=== PATIENT | male | born 1975 | race Caucasian/White ===

== ENCOUNTER → 2021-04-01 09:27 | Outpatient (BNVA) | payer MEDICARE, SELFPAY | PROVIDERS: PCP Internal Medicine; Visit Provider Internal Medicine | DX: M25.511 Pain in right shoulder (principal); G89.29 Other chronic pain | CPT/HCPCS: 99202 ==

== ENCOUNTER → 2021-06-20 11:42 | Outpatient (BNVA) | payer MEDICARE, MEDICAID, SELFPAY | PROVIDERS: PCP Internal Medicine; Visit Provider Internal Medicine | DX: Z13.89 Encounter for screening for other disorder (principal) | CPT/HCPCS: Q3014 ==

== ENCOUNTER 2021-06-27 10:17 | Outpatient (REF) | payer MEDICARE, OTHER, SELFPAY ==
--- NOTE | ~2021-06-27 | XR_ITS ---
EXAMINATION: XR SHOULDER , RIGHT CLINICAL INFORMATION: Pain COMPARISON: None available at the time of this dictation. TECHNIQUE: AP external rotation, Grashey, scapular Y, and axillary views of the shoulder. FINDINGS: BONES: There is no fracture or dislocation, no osteolytic or osteoblastic lesion. JOINTS: Glenohumeral joint is properly positioned. There is mild degenerative osteoarthritis of the acromioclavicular joint. SOFT TISSUE AND INCLUDED LUNG: Normal. XR/XR shoulder RT min 2V IMPRESSION: Except for mild DJD of the AC joint, exam is normal.
== END 2021-06-27 10:18 | disposition home or self-care (01) ==
LOC: HO.HOSX 10:17
PROVIDERS: Visit Provider Orthopaedic Surgery
DX: M75.100 Unspecified rotator cuff tear or rupture of unspecified shoulder, not specified as traumatic (principal)
CPT/HCPCS: 73030; 99202

== ENCOUNTER 2021-07-11 07:15 | Outpatient (REF) | payer MEDICARE, MEDICAID, SELFPAY ==
--- NOTE | ~2021-07-11 | MR_ITS ---
EXAMINATION: MR SHOULDER WITHOUT CONTRAST, RIGHT CLINICAL INFORMATION: Right shoulder pain and decreased range of motion. Evaluate for rotator cuff tendon tear. COMPARISON: Right shoulder radiographs dated 06/27/2021. TECHNIQUE: MRI of the shoulder without contrast was performed on a high-field scanner. FINDINGS: ROTATOR CUFF: Mild supraspinatus tendinosis with a focal full-thickness tear measuring 1.2 x 1.0 cm (AP by ML) and located approximately 1.7 cm proximal to the tendon insertion. Degenerative cystic change within the anterior aspect of the greater tuberosity adjacent to the tendon insertion. No muscle atrophy or fatty infiltration. BICEPS: The proximal long head biceps tendon is not well seen, which could indicate a complete tear and tendon retraction. CORACOACROMIAL ARCH: The undersurface of the acromion is minimally curved with prominent subacromial spurring. [id number] acromioclavicular osteoarthritis with marrow and capsular edema. LABRUM/CAPSULE: Fluid extending through the undersurface of the superior labrum, consistent with a nondisplaced undersurface tear. GLENOHUMERAL JOINT/MARROW: Inferior glenoid articular cartilage thinning with mild subchondral cystic change and tiny marginal osteophytes. Trace joint effusion. MR/MR shoulder RT wo con IMPRESSION: 1. Focal full-thickness tear of the posterior supraspinatus tendon measuring 1.2 x 1.0 cm and located approximately 1.7 cm from the tendon insertion. Prominent degenerative cystic change within the underlying anterior greater tuberosity. 2. Absence of the proximal long head biceps tendon, which could indicate a complete tear and tendon retraction. 3. Frmlgnjk-[id number] acromioclavicular osteoarthritis with prominent marrow and capsular edema. Subacromial spurring. 4. Nondisplaced undersurface tear of the superior labrum. 5. Mild glenohumeral osteoarthritis and trace joint effusion.
== END 2021-07-11 07:16 | disposition home or self-care (01) ==
LOC: HO.MRI 07:15
PROVIDERS: PCP Internal Medicine; Visit Provider Orthopaedic Surgery
DX: M75.100 Unspecified rotator cuff tear or rupture of unspecified shoulder, not specified as traumatic (principal)
CPT/HCPCS: 73221

== ENCOUNTER → 2021-07-22 12:47 | Outpatient (BNVA) | payer MEDICARE, MEDICAID, SELFPAY | PROVIDERS: PCP Internal Medicine; Visit Provider Orthopaedic Surgery | DX: M75.101 Unspecified rotator cuff tear or rupture of right shoulder, not specified as traumatic (principal) | CPT/HCPCS: 99212 ==

== ENCOUNTER 2021-07-31 05:50 | Outpatient (REF) | payer MEDICARE, MEDICAID, SELFPAY | END 2021-07-31 05:51 | disposition home or self-care (01) | LOC: HO.RADIR 05:50 | PROVIDERS: Visit Provider Internal Medicine | DX: Z13.89 Encounter for screening for other disorder (principal) ==

== ENCOUNTER → 2021-09-09 11:40 | Outpatient (BNVA) | payer MEDICARE, MEDICAID, SELFPAY | PROVIDERS: PCP Internal Medicine; Visit Provider Physician Assistant | DX: Z01.818 Encounter for other preprocedural examination (principal); S46.211A Strain of muscle, fascia and tendon of other parts of biceps, right arm, initial encounter; M75.101 Unspecified rotator cuff tear or rupture of right shoulder, not specified as traumatic | CPT/HCPCS: 99212 ==

== ENCOUNTER 2021-09-11 05:49 | Day surgery (SDC) | payer MEDICARE, MEDICAID, SELFPAY ==
[2021-09-06 08:58] VITALS: BMI 30.4
--- NOTE | 2021-09-10 08:18 | HO.ANESPROP2 ---
Documented by User: Jessie San NP 09/10/21 08:18 HPI - Anesthesia Eval Consult details Narrative: 45yo M for Left Arthroscopic Rotator Cuff Repair PMFSH Active Problems Active Problems: All Active Problems (Updated 09/09/21 @ 12:11 by Suzanne Dong) Pre-op evaluation (Acute) Biceps tendon tear (Acute) Rotator cuff tear (Acute) Past Medical History Medical History (Updated 09/09/21 @ 12:11 by Suzanne Dong) Biceps tendon tear Elevated cholesterol HTN (hypertension) Rotator cuff tear Surgical History Surgical History (Updated 09/11/21 @ 06:05 by Lise Mendoza, MARK) History of back surgery History of surgery on arm Social History Social History Substance Use Type: Marijuana Current occupational status: employed Current occupation: [employer] Allergies Allergy/AdvReac Type Severity Reaction Status Date / Time No Known Allergies Allergy Verified 09/11/21 06:05 Home Medications Medication Instructions Recorded Confirmed Last Taken Type atorvastatin 20 mg tablet 20 mg PO BEDTIME 04/01/21 09/09/21 Unknown History cyclobenzaprine 10 mg tablet 10 mg PO TID 04/01/21 09/09/21 Unknown History fluticasone propionate 50 2 spray INTRANASAL DAILY 04/01/21 09/09/21 Unknown History mcg/actuation nasal spray,suspension (Flonase Allergy Relief) lisinopril 20 1 tab PO DAILY 04/01/21 09/09/21 Unknown History mg-hydrochlorothiazide 12.5 mg tablet naproxen 500 mg tablet 500 mg PO BID 04/01/21 09/09/21 Unknown History pregabalin 225 mg capsule (Lyrica) 225 mg PO BID 04/01/21 09/09/21 09/11/21 04:30 History Exam Exam Date and Time: September 10, [id number] Height,Weight and Vital Signs: Height 6 ft 2 in Weight 107.501 kg Assessment and Plan Assessment Anesthesia Assessment: Chart Reviewed Documented by User: Nino Goel MD 09/11/21 15:01 HPI - Anesthesia Eval Consult details Narrative: 45yo M for right Arthroscopic Rotator Cuff Repair chronic back pain PMFSH Past Medical History Medical History (Updated 09/09/21 @ 12:11 by Suzanne Dong) Biceps tendon tear Elevated cholesterol HTN (hypertension) Rotator cuff tear Family History Family history of problems with anesthesia: No Surgical History Surgical History (Updated 09/11/21 @ 06:05 by Lise Mendoza RN) History of back surgery History of surgery on arm History of Problems with Anesthesia: No Social History Social History Substance Use Type: Marijuana Current occupational status: employed Current occupation: [employer] Allergies Allergy/AdvReac Type Severity Reaction Status Date / Time No Known Allergies Allergy Verified 09/11/21 06:05 Home Medications Medication Instructions Recorded Confirmed Last Taken Type atorvastatin 20 mg tablet 20 mg PO BEDTIME 04/01/21 09/09/21 Unknown History cyclobenzaprine 10 mg tablet 10 mg PO TID 04/01/21 09/09/21 Unknown History fluticasone propionate 50 2 spray INTRANASAL DAILY 04/01/21 09/09/21 Unknown History mcg/actuation nasal spray,suspension (Flonase Allergy Relief) lisinopril 20 1 tab PO DAILY 04/01/21 09/09/21 Unknown History mg-hydrochlorothiazide 12.5 mg tablet naproxen 500 mg tablet 500 mg PO BID 04/01/21 09/09/21 Unknown History pregabalin 225 mg capsule (Lyrica) 225 mg PO BID 04/01/21 09/09/21 09/11/21 04:30 History Exam Airway Mallampati Class: II TM Dist: >3cm Neck ROM: Full Loose/Missing/Broken Teeth: Yes Heart: rrr Lungs: bl breath sounds Assessment and Plan Assessment Anesthesia Assessment: Anesthesia Plan Discussed Final Anesthetic Review Family History of Problems with Anesthesia: No History of Problems with Anesthesia: No NPO: Yes ASA Class: II Final Preanesthetic Review: No Changes in Pt Med Stat, Meds/Allgs Chart Reviewed, Consent Obtained/Reviewed and Anes Risks/Benef Reviewed Patient Risk: Intermediate Procedure Risk: Intermediate Anesthetic Plan Anesthetic Plan: GA and Regional Block Disposition: Standard PACU
[2021-09-11 06:10] VITALS: BP 138/85; PULSE 77; RESP 16; TEMP 36.8; O2SAT 99
[2021-09-11] MEDS: Lactated Ringers 1,000 ML 100 ML IVCONT (06:28)
--- NOTE | 2021-09-11 07:30 | MHC.SHP ---
Pre-Procedural Eval Section A Date of Service: 09/11/21 The patient is an INPATIENT: No Changes since office visit: Yes Patient answered all questions; No Cold of Flu in the past 2 weeks, No New Medical Problems and No Changes in Medication The History & Physical has been completed within 30 days and I have reviewed it.: Yes Section B Chief Complaint: rotator cuff tear Allergies: Allergies Allergy/AdvReac Type Severity Reaction Status Date / Time No Known Allergies Allergy Verified 09/11/21 06:05 Plan I have reviewed the history and physical and performed a pertinent physical examination on my patient. No changes have occurred unless specified.
--- NOTE | 2021-09-11 09:37 | PM.OP ---
Brief Operative Note Date of Service: 09/11/21 Pre-op diagnosis: right rotator cuff tear Post-op diagnosis: same Procedure: Right rotator cuff repair Implants: [employer]org[employer] and nephew Microraptor x1 [employer] Nephew Bio-inductive RTC graft Surgeon: Bishop Singer MD Anesthesia: GETA and regional Was an Insulating Machine Operator used for this Procedure?: Yes Insulating Machine Operator: Nancy Wilson Estimated blood loss (mL): 10 IV fluids (mL): 1,000 Pathology: none sent Condition: stable Disposition: PACU
--- NOTE | 2021-09-11 09:41 | P.OP_ITS ---
Operative Note Operative Note Date of Service: 09/11/21 Narrative: Pre-op diagnosis: right rotator cuff tear Post-op diagnosis: same Procedure: Right rotator cuff repair Implants: Astorga and nephew Microraptor x1 [employer] Nephew Bio-inductive RTC graft Surgeon: Bishop Singer MD Anesthesia: GETA and regional Was an Battery Repairer used for this Procedure?: Yes Battery Repairer: Nancy Wilson Estimated blood loss (mL): 10 IV fluids (mL): 1,000 Pathology: none sent Condition: stable Disposition: PACU Procedure in detail: Patient was brought to the operating room and placed the the beach chair position. All bony prominences were well padded and the limb was prepped and draped in standard sterile fashion. A time out was called to identify proper site, proper procedure and proper surgeon. IV antibiotics per weight were administered. I began by making a posterolateral stab incision with a 15 blade. A blunt trochar was placed into the glenohumeral joint and I insufflated the joint with saline and a 30 degree arthroscope was placed. I established an outside- in anterior portal just distal to the biceps tendon. I then began my inspection of the glenohumeral joint. The biceps tendon was absent. There was a large intrasubstance superior rotator cuff tear. The interior gutter was clean and the subscapularis was intact. There was fraying of the superior labrum. I debrided the superior labrum. I then removed the trochar and entered the subacromial space. A direct lateral portal was then established and I performed a bursectomy. The cuff was then examined. The tendon was intact but the humeral head was clearly visible through the 2 cm medial to lateral tear. I performed a 5 mm subacromial decompression. I placed three suture tapes and performed a sided to side repair which left a dog ear laterally over the medial footprint. I placed a side to side looped suture through this and dunked the tail into a microraptor medial to the articular surface. Given the nature of this tear I placed a Collagen bio-inductive graft over the repair. PEEK miranda and 2 lateral bone anchors were used to secure this. Once I was satisfied with the repair final images were captured and I removed all instrumentation. Portals were closed with nylon. Patient was placed in an abduction sling, extubated and brought to the recovery room in stable condition. There were no known complications.
[2021-09-11 09:50] VITALS: BP 141/82; PULSE 85; RESP 16; TEMP 36.4; O2SAT 100
[2021-09-11 09:55] VITALS: BP 136/80; PULSE 77; RESP 16; O2SAT 95
[2021-09-11 10:00] VITALS: BP 142/84; PULSE 75; RESP 16; O2SAT 95
[2021-09-11 10:05] VITALS: BP 146/88; PULSE 66; RESP 18; O2SAT 96
[2021-09-11 10:20] VITALS: BP 129/85; PULSE 67; RESP 18; TEMP 36.2; O2SAT 96
[2021-09-11] MEDS: oxyCODONE HCl Immed Release 5 MG TABLET PO (10:28)
== END 2021-09-11 11:10 | disposition home or self-care (01) ==
PROVIDERS: PCP Internal Medicine; Visit Provider Orthopaedic Surgery
PROC: (CPT 29827; principal; 2021-09-11 07:30)
DX: M75.101 Unspecified rotator cuff tear or rupture of right shoulder, not specified as traumatic (principal); S46.211A Strain of muscle, fascia and tendon of other parts of biceps, right arm, initial encounter; X58.XXXA Exposure to other specified factors, initial encounter; Y93.9 Activity, unspecified; Y92.9 Unspecified place or not applicable; Y99.8 Other external cause status; I10 Essential (primary) hypertension; E78.00 Pure hypercholesterolemia, unspecified; Z79.899 Other long term (current) drug therapy; Z98.890 Other specified postprocedural states; F12.90 Cannabis use, unspecified, uncomplicated
CPT/HCPCS: 29827; 29826; C1713; J0171; J0690; J1100; J1170; J2250; J2405; J3010

== ENCOUNTER 2021-09-16 07:29 | Outpatient (RCR) | payer MEDICARE, MEDICAID, SELFPAY | END 2021-11-15 10:36 | disposition home or self-care (01) | LOC: HO.PT 07:29 | PROVIDERS: Visit Provider Physician Assistant | DX: M75.100 Unspecified rotator cuff tear or rupture of unspecified shoulder, not specified as traumatic (principal) ==

== ENCOUNTER → 2021-09-16 10:59 | Outpatient (BNVA) | payer MEDICARE, MEDICAID, SELFPAY | PROVIDERS: PCP Internal Medicine; Visit Provider Physician Assistant | DX: Z47.89 Encounter for other orthopedic aftercare (principal); Z98.890 Other specified postprocedural states | CPT/HCPCS: 99212 ==

== ENCOUNTER → 2021-10-14 09:57 | Outpatient (BNVA) | payer MEDICARE, MEDICAID, SELFPAY | PROVIDERS: PCP Internal Medicine; Visit Provider Physician Assistant | DX: M75.101 Unspecified rotator cuff tear or rupture of right shoulder, not specified as traumatic (principal) | CPT/HCPCS: 99212 ==